=== PATIENT | male | born 1945 | race African-American/Black ===

== ENCOUNTER 2017-10-16 09:29 | Day surgery (SDC) | payer OTHER, MEDICARE ==
[~2017-10-16] VITALS: Ht 182.9 cm; Wt 79.0 kg
[~2017-10-16 09:29] MED LIST: A-CARO-2525000 UNIT PO; ASPIRIN81 M2 PO; ATORVASTATIN CA20 MG PO; DIOVAN HCT 31 TABLE1 PO; GABAPENTIN300 MG PO; LOPRESSOR50 MG PO; VITAMIN C500 M6 PO
[2017-10-16] MEDS ORDERED: ASPIR-TRIN325 M1 PO (09:57)
== END 2017-10-16 16:14 | disposition home or self-care (01) ==
LOC: CATH 09:29
DX: I25.10 Atherosclerotic heart disease of native coronary artery without angina pectoris (principal); I25.810 Atherosclerosis of coronary artery bypass graft(s) without angina pectoris; I25.82 Chronic total occlusion of coronary artery; I71.2 Thoracic aortic aneurysm, without rupture; I08.0 Rheumatic disorders of both mitral and aortic valves; I11.9 Hypertensive heart disease without heart failure
CPT/HCPCS: 85347; 93005; C1760; C1769; C1887; C1894; J0153; J1644; J2250; J3010